=== PATIENT | female | born 1945 | race Caucasian/White ===

== ENCOUNTER 2018-06-21 02:52 | Outpatient (CLI) | payer OTHER, SELFPAY ==
--- NOTE | 2018-06-21 08:40 | DI.US_ITS ---
SYMPTOM/DIAGNOSIS: RUQ ABD PAIN, R10.11 ABDOMEN ULTRASOUND: Routine examination was performed. Comparison is made with 03/01/16. The abdominal aorta and IVC are unremarkable. The liver is normal in size. There is diffuse increased echogenicity of the liver consistent with fatty infiltration. No hepatic mass is seen. Portal venous flow is normal. The gallbladder is negative. No cholelithiasis or pericholecystic fluid is seen. There is a negative sonographic Wilson's sign. The common duct is within normal limits at .4 cm. The pancreas, kidneys and spleen are unremarkable. No fluid is seen in the upper abdomen. IMPRESSION: Hepatic steatosis. Otherwise negative abdomen ultrasound.
--- NOTE | 2018-06-21 08:40 | DI.RAD_ITS ---
SYMPTOM/DIAGNOSIS: ABD PAIN, R10.9 FLAT AND UPRIGHT ABDOMEN: Comparison CT scan is 06/21/17. The visualized lung bases are clear. There is a small amount of retained stool predominantly in the descending and sigmoid colon. No evidence of bowel obstruction, organomegaly or pneumoperitoneum is seen. Mild degenerative changes are seen in the lumbar spine and the hips bilaterally. IMPRESSION: No evidence of an acute abdomen.
[2018-06-21 08:52] LABS: HCT 43.5 % (36.0-46.0); HGB 14.5 g/dL (12.0-15.5); Mean Corp. HGB Concentration 33.3 g/dL (32.0-36.0); Mean Platelet Volume 9.7 fL (8.0-11.0); Platelet Count 258 x1000/uL (130-400); White Blood Cell Count 4.66 k/cumm (4.4-10.8)
[2018-06-21 09:16] LABS: ALT 23 U/L (12-78); AST 20 U/L (15-37); Albumin 3.7 g/dL (3.4-5.0); Alkaline Phosphatase 94 U/L (46-116); Anion Gap 9.2 mmol/L (3-11); BUN 10 mg/dL (7-18); Bilirubin, Total 0.6 mg/dL (0.2-1.0); CO2 26.8 mmol/L (21.0-32.0); CREATININE 0.87 mg/dL (0.55-1.02); Calcium 9.3 mg/dL (8.5-10.1); Chloride 103 mmol/L (98-107); Glucose 90 mg/dL (70-100); Lipase 124 U/L (73-393); Sodium 139 mmol/L (136-145); TSH (W/Ref FT4) 2.53 uIU/mL (0.358-3.74); Total Protein 7.9 g/dL (6.4-8.2)
== END 2018-06-21 03:12 ==
PROVIDERS: PCP Nurse Practitioner; Visit Provider Nurse Practitioner
DX: R10.11 Right upper quadrant pain (principal); K76.0 Fatty (change of) liver, not elsewhere classified; E03.9 Hypothyroidism, unspecified
CPT/HCPCS: 36415; 80053; 83690; 85027; 74019; 76700; 84443

== ENCOUNTER 2018-11-17 00:37 | Outpatient (CLI) | payer OTHER, SELFPAY ==
--- NOTE | 2018-11-17 09:15 | DI.US_ITS ---
SYMPTOM/DIAGNOSIS: HYPOTHYROID, DYSPHAGIA, THYROID TENDERNESS, R03.9, E07.89 THYROID ULTRASOUND: Thyroid ultrasound was performed according to the usual protocol. Right thyroid lobe measures 36 by 11 by 11 mm. and left thyroid lobe measures 35 by 11 by 10 mm. with a 4 mm. thick isthmus. Thyroid parenchyma is mildly heterogeneous. No dominant mass identified. A less than 3 mm. in diameter mixed echogenicity, predominantly cystic lesion is noted in the inferior pole of the left thyroid lobe. CONCLUSION: Essentially negative thyroid ultrasound. Less than 3 mm. in diameter, small, predominantly cystic lower pole left lobe nodule may be re- evaluated with repeat ultrasound in 12 months.
== END 2018-11-17 00:57 ==
PROVIDERS: PCP Nurse Practitioner; Visit Provider Nurse Practitioner
DX: E03.9 Hypothyroidism, unspecified (principal); E07.89 Other specified disorders of thyroid; E04.1 Nontoxic single thyroid nodule
CPT/HCPCS: 76536

== ENCOUNTER 2018-11-22 02:27 | Outpatient (CLI) | payer OTHER, SELFPAY | END 2018-11-22 02:47 | PROVIDERS: PCP Nurse Practitioner | DX: R13.12 Dysphagia, oropharyngeal phase (principal) | CPT/HCPCS: 92610 ==